=== PATIENT | male | born 1955 | race American Indian/Alaskan Native ===

== ENCOUNTER 2021-08-09 08:37 | Emergency (ER) | payer MEDICARE ==
[2021-08-09 08:44] VITALS: BP 143/00
== END 2021-08-09 09:57 ==
LOC: ED 08:37
DX: S30.92XA Unspecified superficial injury of abdominal wall, initial encounter (principal); Z53.21 Procedure and treatment not carried out due to patient leaving prior to being seen by health care provider; X58.XXXA Exposure to other specified factors, initial encounter; Y93.89 Activity, other specified; Y92.89 Other specified places as the place of occurrence of the external cause; Y99.8 Other external cause status